=== PATIENT | male | born 1990 | race Hispanic/Latino ===

== ENCOUNTER 2016-08-18 14:48 | Emergency (ER) | payer OTHER ==
[~2016-08-18] VITALS: Ht 165.1 cm; Wt 78.2 kg
[2016-08-18 14:54] VITALS: BP 117/74; PULSE 69; RESP 16; O2SAT 100
--- NOTE | 2016-08-18 15:24 | ED.REPORT ---
HPI-Trauma Multiple Date of Service Aug 18, 2016 ED Provider: Dr. Ospnia Pt is a 25 y/o healthy male presenting to the ED c/o left hand and abdominal pain secondary to injury which occurred prior to arrival. The patient was using a tablesaw to cut a slab of wood when it kicked back and hit the RLQ of his abdomen and his left hand. Pt denies hematuria, numbness, weakness, other sites of injury, nausea, vomiting, CP, SOB. Nursing Notes Stated Complaint: STOMACH /HAND PAIN Chief Complaint: Multiple Trauma/Fall Nursing Notes Reviewed: Yes Allergies: Coded Allergies: No Known Allergies (Unverified , 08/18/16) Scheduled PRN Hydrocodone-Acetaminophen 5-325 mg (Hydrocodone-Acetaminophen 5-325 mg) 1 Each Tablet 1 TABLET PO Q4H PRN PRN For Pain General Time Seen by Provider: 16:00 Chief Complaint Abdominal pain/injury Hx Obtained From: Patient, EMS Arrived By: Ambulance Onset Occurred: Just prior to arrival Symptom Duration: Since onset Progression Since Onset: Unchanged Caused by: Blunt trauma Location: : Abdomen: Hand left Quality: Painful Severity: Current: Moderate Severity: Maximum: Moderate Similar Sx Previous: No Past Medical History Past Medical History None reported Past Surgical History None reported Smoking History Unknown if Ever Smoker Ambulatory Status Independent Review of Systems Constitutional: Denies: Chills, Fever Respiratory: Denies: Non-productive cough, Shortness of breath Cardiovascular: Denies: Chest pain, Dyspnea on exertion GI: Reports: Abdominal pain, Denies: Nausea, Vomiting Musculoskeletal: Reports: Extremity pain, Extremity swelling, Denies: Back pain, Neck pain Neurologic: Denies: Change LOC, Headache Complete sys rev & neg: except as marked. Physical Exam Initial Vital Signs Vital Signs (First) Date Time Temp Pulse Resp B/P Pulse Ox O2 Delivery O2 Flow Rate FiO2 08/18/16 14:54 36.4 69 16 117/74 100 Room Air Initial VS: Reviewed, Vital signs normal ENT: Mucous membranes moist, Conjunctiva normal, No scleral icterus Skin: Warm, Dry, No cyanosis Psychiatric: Mood/affect normal, Behavior normal, Normal thought content General/Constitutional: Awake, Alert, No acute distress, Cooperative, Not toxic appearing Head / Eyes: Atraumatic, Normocephalic, PERRL Neck: Atraumatic, Supple, No meningismus, Full range of motion, Non-tender Respiratory / Chest: Atraumatic, Breath sounds NL, Breath sounds = bilat, No respiratory distress, No rales, No rhonchi, No wheezing, No retractions, No stridor, No chest tenderness, No chest wall deformity, No crepitus Cardiovascular: Heart rate NL, Regular rhythm, Heart sounds NL, No gallop, No murmurs, No rubs, Cap refill not delayed, Peripheral circulation NL Abdomen: Atraumatic, Soft, No guarding, No rebound, No distention 6 x 3 cm abrasion over RLQ with associated tenderness Back: Full range of motion, Painless range of motion, No midline vertebral tend Neurologic: Oriented X3, Speech NL, No motor deficits, No sensory deficits, CN II - XII intact, Cerebellar NL, Memory NL Upper Extremity / MS: No erythema, No deformity, Neurologic intact, Vascular intact Swelling and abrasion over the dorsum of the left hand about the 2nd and 3rd PIP joints. Able to flex and extend fingers with pain with ROM of the 1st and 2nd PIP joints. Interpretation & Diagnostics Lab Results Interpretation Result Diagram: 08/18/16 1642 08/18/16 1642 Test 08/18/16 16:42 White Blood Count 6.2th/mm3 (3.8-10.1) Red Blood Count 5.75mil/mm3 (4.40-5.80) Hemoglobin 15.8g/dL (13.8-17.2) Hematocrit 45.6% (41.0-50.0) Mean Corpuscular Volume 79.3fL (81-100) Mean Corpuscular Hemoglobin 27.5pg (27.0-35.0) Mean Corpuscular Hemoglobin Concent 34.6% (32.0-37.0) Red Cell Distribution Width 13.5% (12.3-15.4) Platelet Count 252bil/L (150-400) Neutrophils (%) (Auto) 62.2% (40-74) Lymphocytes (%) (Auto) 27.4% (14-46) Monocytes (%) (Auto) 6.3% (4-12) Eosinophils (%) (Auto) 3.1% (0-5) Basophils (%) (Auto) 0.5% (0-3) Sodium Level 139mEq/L (134-144) Potassium Level 4.1mEq/L (3.5-5.2) Chloride Level 100mEq/L (97-108) Carbon Dioxide Level 26mmol/L (18-29) Blood Urea Nitrogen 14mg/dL (6-20) Creatinine 0.77mg/dL (0.76-1.27) Estimat Glomerular Filtration Rate 131mL/min (>59) Glucose Level 99mg/dL (60-99) Calcium Level 9.2mg/dL (8.5-10.1) Total Bilirubin 0.4mg/dL (0.0-1.2) Aspartate Amino Transf (AST/SGOT) 23U/L (0-50) Alanine Aminotransferase (ALT/SGPT) 19U/L (0-44) Alkaline Phosphatase 88U/L (25-150) Total Protein 7.3g/dL (6.4-8.4) Albumin 4.7g/dL (3.4-5.0) Lipase 36U/L (13-60) X-Ray Interpretation Xray Interpretation: IMPRESSION: No fracture. No osseous lesion. If symptoms and/or clinical suspicion for pathology persists, further assessment with repeat radiographs or advanced imaging (e.g. CT, MRI or bone scan) may be helpful for further assessment. Dictated by: Samantha Drake MD, PhD on 08/18/2016 at 16:48 Approved by: Samantha Drake MD, PhD on 08/18/2016 at 16:49 Study Performed: 3 view X-Ray Ordered: Hand left Interpretation / Wet Read by: Interpret - Radiologist CT Abd / Pelvis Interpretation IMPRESSION: Other than some subcutaneous contusion in the fat of the right lower quadrant seen for instance on series 2 image 45 there is no abnormality on the CT scan of the abdomen and pelvis with contrast done for trauma. Dictated by: Rome Cosme M.D. on 08/18/2016 at 17:49 Approved by: Rome Cosme M.D. on 08/18/2016 at 17:52 Study type: Abdominal CT IV contrast Interpretation / Wet Read by: Interpret - Radiologist Re-Eval/Medical Decision Med Decision/Clinical Course Pt is a 25 y/o healthy male presenting to the ED c/o left hand and abdominal pain secondary to injury which occurred prior to arrival. The patient was using a tablesaw to cut a slab of wood when it kicked back and hit the RLQ of his abdomen and his left hand. Pt denies hematuria, numbness, weakness, other sites of injury, nausea, vomiting, CP, SOB. Patient afebrile with stable vital signs and in no apparent distress. Examination as above reveals ecchymosis/abrasions to his right lower quadrant as well as the dorsum of his left hand. Meds given: Oral Tylenol Labs notable as below: CBC: unremarkable CMP: unremarkable CT scan of the abdomen and pelvis demonstrated no acute intra-abdominal injury or bleeding. Plain pulsatile left hand demonstrated no acute fractures. He was neurovascularly intact. Full survey revealed no other associated injuries. Patient advised to use ice packs and take ibuprofen for pain. Additional prescription was provided for breakthrough pain. Follow-up and return precautions were reviewed in detail he was discharged in good condition. Re-Evaluation/Progress : Time of Eval: 18:01 Re-Evaluation/Progress Note: Pt rechecked. Discussed negative imaging findings. Informed pt of plan for treatment. Pt understands and agrees with plan for treatment. F/U instructions and RTER warnings given. All questions addressed. Counseled Regarding: Diagnosis, Need for follow-up, When/why to return to ED Discharge & Departure Impression: Primary Impression: Abdominal injury Encounter type: initial encounter Qualified Code: S39.91XA - Unspecified injury of abdomen, initial encounter Additional Impressions: Abrasion Bruise Abdominal trauma Encounter type: initial encounter Qualified Code: S39.91XA - Unspecified injury of abdomen, initial encounter Injury of left hand Encounter type: initial encounter Qualified Code: S69.92XA - Unspecified injury of left wrist, hand and finger(s), initial encounter Disposition: Home Discharge Condition All VS Reviewed: Yes Condition: Stable Additional Instructions: Thank you for seeking care at emergency room. You were seen for a bruise and abrasion of the lower abdomen. Our primary goal today in the ED was to evaluate you for any life-threatening conditions. Your evaluation was reassuring. You will be discharged with a prescription for pain medication you may take this as needed. I recommend applying ice packs. You should follow-up with your primary doctor in the next week. You should return to the ED immediately if you develop any worse pain or symptoms, fevers, vomiting, cough, shortness of breath, chest pain, lightheadedness, weakness or any other concerning signs or symptoms. Thank you for letting us partake in your care today. Narcotic Pain Medicine You have been prescribed a narcotic for pain relief. These drugs are usually combined with acetaminophen (Tylenol#3, Percocet, Darvocet, Anexsia, Vicodin) or aspirin (Empirin#3, Percodan, Synalogs-DC) for increased effect. Narcotics act on the central nervous system to reduce pain; they also impair mental alertness and physical abilities. We advise you not to drink alcohol, drive a car, or operate dangerous equipment when you are taking theses drugs. You can lessen stomach irritation from your medicine by taking it with meals or a full glass of water. Common side effects of narcotics are: Nausea and vomiting, heartburn, consitpation, dizziness, sleepiness, and mood changes. If you have bothersome side effects or symptoms of an allergic reaction (itching, hives, rash), stop taking your medicine and call your doctor or the emergency room right away. Please keep your narcotic medicine well out of the reach of children. Referrals: [facility] Scribe Attestation Portions of this note were transcribed by Rodolfo Rodriguez. I, Dr. Ospina personally performed the history, physical exam and medical decision-making; I reviewed and confirmed the accuracy of the information in the transcribed note. Signed by Vahid Borrego, 08/18/16 - 1599 Keith Ospina MD Aug 18, 2016 15:24 RODOLFO RODRIGUEZ Aug 18, 2016 16:00
[2016-08-18] MEDS ORDERED: HYDR-4003 PO (15:58)
[2016-08-18 16:46] LABS: BASOPHILS % (AUTO) 0.5 % (0-3); EOSINOPHILS % (AUTO) 3.1 % (0-5); MONOCYTES % (AUTO) 6.3 % (4-12); Mean Corpuscular Hemoglobin 27.5 pg (27.0-35.0); Mean Corpuscular Volume 79.3 fL (81-100); NEUTROPHILS % (AUTO) 62.2 % (40-74); Platelet Count 252 bil/L (150-400)
--- NOTE | 2016-08-18 16:50 | DRSVH ---
PROCEDURE: X-RAY LEFT HAND, MINIMUM THREE VIEWS ([id number]) INDICATIONS: trauma TECHNIQUE: 3 views of the hand(s) acquired. COMPARISON: None. FINDINGS: Bones: No fractures or dislocations. Carpal bones are normally aligned. No suspicious bony lesions . Soft tissues: No suspicious soft tissue calcifications. IMPRESSION: No fracture. No osseous lesion. If symptoms and/or clinical suspicion for pathology pers ists, further assessment with repeat radiographs or advanced imaging (e.g. CT, MRI or bone scan) may be helpful for further assessment. Dictated by: Samantha Drake MD, PhD on 08/18/2016 at 16:48 Approved by: Samantha Drake MD, PhD on 08/18/2016 at 16:49
--- NOTE | 2016-08-18 17:54 | DRSVH ---
PROCEDURE: CT ABDOMEN AND PELVIS WITH CONTRAST TRAUMA (PNL 7509) INDICATIONS: trauma to RLQ TECHNIQUE: After the administration of intravenous contrast, 5 mm thick sections acquired from the diaphragms to the symphysis. 5 mm thick coronal and sagittal reformats were acquired. Optional 10-minute delayed imaging may be performed from the kidneys to the bladder. For radiation dose reduction, the followi ng was used: automated exposure control, adjustment of mA and/or kV according to patient size. COMPARISON: None. FINDINGS: Image quality: Good ABDOMEN: Lung bases: Lung bases are clear. Heart size is normal. No pericardial effusion. Inferior ribs ar e intact. No basal pleural effusions or pneumothorax. Solid organs: Liver and spleen are normal in size and enhancement, without lacerations. Gallbladder is within normal limits. Biliary system is non-dilated. Pancreas enhances normally, without transe ction. No adrenal hematomas. Both kidneys enhance normally, without hydronephrosis or lacerations. Peritoneum and bowel: No free fluid or air. Unenhanced bowel loops demonstrate normal wall thicknes s and caliber. Nodes and vessels: No retroperitoneal or mesenteric adenopathy. Aorta and inferior vena cava are no rmal in size and enhancement. Miscellaneous: No ventral hernias. Subcutaneous contusion is seen in the right lower quadrant serie s 2 image 45 PELVIS: Genitourinary: Bladder wall thickness is normal. Miscellaneous: No inguinal hernias or adenopathy. Bones: Pelvic ring and hip joints appear intact. No vertebral compression fractures. IMPRESSION: Other than some subcutaneous contusion in the fat of the right lower quadrant seen for in stance on series 2 image 45 there is no abnormality on the CT scan of the abdomen and pelvis with con trast done for trauma. Dictated by: Rome Cosme M.D. on 08/18/2016 at 17:49 Approved by: Rome Cosme M.D. on 08/18/2016 at 17:52
[2016-08-18 19:17] VITALS: BP 106/78; PULSE 72; RESP 16; O2SAT 99
== END 2016-08-18 19:18 | disposition home or self-care (01) ==
LOC: SED 14:48
DX: S30.1XXA Contusion of abdominal wall, initial encounter (principal); S60.512A Abrasion of left hand, initial encounter; W31.2XXA Contact with powered woodworking and forming machines, initial encounter; Y93.89 Activity, other specified; Y99.8 Other external cause status; Y92.9 Unspecified place or not applicable
CPT/HCPCS: 36415; 73130; 74177; 80053; 83690; 85025; 99284; Q9967